=== PATIENT | female | born 1995 | race American Indian/Alaskan Native ===

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

== ENCOUNTER 2017-01-04 16:49 | Outpatient (CLI) | payer SELFPAY ==
[2017-01-04 17:13] VITALS: BP 100/57
--- NOTE | 2017-01-04 20:09 | Progress Note ---
Assessment and Plan A: Term ; false labor. P: Discharge patient to home. Follow up at [facility] on Saturday at regular appointment. Advised patient to perform daily movement counting. Advised patient regarding signs of labor and late warning signs. Subjective - Subjective Date of service: 01/04/17 Principal diagnosis: False labor Interval history: 21 year old female at term presents with complaint of contractions. Patient states she has had a cervical exam several times in the past week and had some brown spotting each day. Patient states yesterday she had some pink to red vaginal spotting/bleeding. Patient denies recent IC. Patient reports movement is slightly decreased since yesterday. She denies falls or abdominal trauma. She denies leaking of fluid. Patient reports: vaginal bleeding, no loss of fluid Objective - Vital Signs Vital Signs: Vital Signs - 12hr 01/04/17 01/04/17 17:13 17:14 Temperature 98.4 F Pulse Rate 97 H Blood Pressure 100/57 Blood Pressure 100/57 [Left] - Exam Narrative Exam: BPP 8/8. Normal placenta on sono today. Patient states she now feels good movement. Abdomen: Present: normal appearance, soft. Absent: distention, tenderness, guarding Uterus: Present: normal, other (gravid, nontender) FHR: category 1 Uterine Contraction Monitor Mode: External Cervical Dilatation: 2.5 Cervical Effacement Percentage: 50 station: -3 Uterine Contraction Frequency (min): Irregular Extremities: normal
--- NOTE | 2017-01-06 10:05 | Ultrasound Report ---
ULTRASOUND OB LIMITED History: well being, vaginal bleeding Technique: Transabdominal ultrasound with Doppler interrogation. Gestation: Single Position: Cephalic Placenta: Anterior Placental Grade: 2 Heart Rate: 145 BPM
--- NOTE | 2017-01-06 10:05 | Ultrasound Report ---
ULTRASOUND BIOPHYSICAL PROFILE: History: well being, vaginal bleeding Technique: Transabdominal ultrasound with Doppler interrogation. 2 - breathing movements 2 - movements 2 - posture and tone 2 - Qualitative amniotic fluid volume 8 - TOTAL SCORE OF POSSIBLE 8 Heart Rate (bpm) 145
== END 2017-01-04 18:32 | disposition home or self-care (01) ==
LOC: TRG 16:49
PROVIDERS: ATTEND Obstetrics & Gynecology
DX: O62.9 Abnormality of forces of labor, unspecified (principal); O47.1 False labor at or after 37 completed weeks of gestation; Z3A.39 39 weeks gestation of pregnancy
CPT/HCPCS: 59025; 76815; 76819

== ENCOUNTER 2017-01-06 03:18 | Inpatient (IN) | payer OTHER ==
[2017-01-06] MEDS ORDERED: ePHEDrine SULFATE IV PRN (04:18)
[2017-01-06] MEDS ORDERED: MINERAL OIL PO PRN (04:18)
[2017-01-06] MEDS ORDERED: XYLOCAINE 2% INFILTRATI ONE (04:18)
[2017-01-06 04:28] LABS: Hematocrit 35.3 % (30.3-42.9); Hemoglobin 11.5 gm/dl (10.1-14.3); Mean Corpuscular HGB Conc 33 % (30-34); Mean Corpuscular Hemoglobin 27 pg (28-32); Mean Corpuscular Volume 82 fl (79-97); Platelet Count 200 K/mm3 (140-440); Red Blood Count 4.33 M/mm3 (3.65-5.03); Red Cell Distribution Width 15.3 % (13.2-15.2); White Blood Count 8.4 K/mm3 (4.5-11.0)
[2017-01-06] MEDS ORDERED: SUBLIMAZE IV PRN (04:51)
[2017-01-06] MEDS ORDERED: ZOFRAN IV PRN (04:51)
[2017-01-06] MEDS ORDERED: LACTATED RINGERS 1,000 ML IV SCH (05:00)
--- NOTE | 2017-01-06 05:10 | History and Physical Report ---
History of Present Illness Date of examination: 01/06/17 Date of admission: 01/06/17 03:46 Chief complaint: Labor History of present illness: 21 year old presents to L&D in labor. Patient denies leaking of fluid or vaginal bleeding. No records available but patient has received care at [facility]. Past History Past Surgical History: no surgical history [employer] History: denies: herpes Family/Genetic History: none Social history: no significant social history - Obstetrical History Expected Date of Delivery: 01/06/17 Actual Gestation: 40 Week(s) 0 Day(s) : 2 Para: 1 Hx # Term Pregnancies: 2 Number of Pregnancies: 0 Spontaneous Abortions: 0 Induced : 0 Number of Living Children: 1 Medications and Allergies Allergies Allergy/AdvReac Type Severity Reaction Status Date / Time No Known Allergies Allergy Verified 07/19/15 17:01 Home Medications Medication Instructions Recorded Confirmed Last Taken Type No Known Home Medications [No 01/04/17 01/04/17 Unknown History Reported Home Medications] Active Meds: Active Medications Fentanyl (Sublimaze) 100 mcg IV Q2H PRN PRN Reason: Labor Pain Lactated Ringer's (Lactated Ringers) 1,000 mls @ 125 mls/hr IV DIRECT RADHA Oxytocin/Sodium Chloride (Pitocin/Ns 20 Unit/1000ml Drip) 20 units in 1,000 mls @ 125 mls/hr IV DIRECT RADHA Mineral Oil (Mineral Oil) 30 ml PO QHS PRN PRN Reason: Constipation Ondansetron HCl (Zofran) 4 mg IV Q8H PRN PRN Reason: Nausea And Vomiting Review of Systems Constitutional: no fever, no chills Eyes: deferred Ears, nose, mouth and throat: no headache Cardiovascular: no chest pain, no edema Respiratory: no cough Gastrointestinal: nausea, vomiting Genitourinary: no vaginal bleeding, no leakage of fluid - Vital Signs Vital signs: Vital Signs Pulse BP 92 H 115/75 01/06/17 03:47 01/06/17 03:47 Temp Pulse Resp BP Pulse Ox 97 H 108/67 01/06/17 04:21 01/06/17 04:21 - Physical Exam Breasts: Positive: deferred Cardiovascular: Regular rate, No murmurs Lungs: Positive: Clear to auscultation Abdomen: Positive: normal appearance, soft. Negative: distention, tenderness, guarding Genitourinary (Female): Positive: normal external genitalia. Negative: perineal /vulvar lesions Uterus: Positive: enlarged Extremities: Positive: normal. Negative: edema - Obstetrical FHR: category 1 Uterine Contraction Monitor Mode: External Cervical Dilatation: 8 Cervical Effacement Percentage: 90 station: 0 Uterine Contraction Pattern: Regular Uterine Contraction Intensity: Moderate Results Result Diagrams: 01/06/17 04:13 Abnormal lab results 01/06/17 Range/Units 04:13 MCH 27 L (28-32) pg RDW 15.3 H (13.2-15.2) % All other labs normal. Assessment and Plan A: at 39 weeks, 3 days gestation. Active labor. P: Admit. GBS prophylaxis since no records available. Anticipate .
[2017-01-06] MEDS ORDERED: POLYCILLIN/NS 2 GM/100 ML 2 GM/100 ML BAG IV ONE (05:18)
[2017-01-06] MEDS: PITOCin/NS 20 UNIT/1000ML DRIP 20 UNITS/1,000 ML BAG IV SCH ×2 (06:14→07:58)
[2017-01-06] MEDS ORDERED: CYTOTEC ONE (06:17)
[2017-01-06] MEDS ORDERED: LANSINOH TP PRN ×2 (06:38)
[2017-01-06] MEDS ORDERED: NORCO 5/325 PO PRN (06:38)
[2017-01-06] MEDS ORDERED: TUCKS PAD TP PRN (06:38)
[2017-01-06] MEDS ORDERED: DERMOPLAST TP PRN (06:38)
[2017-01-06] MEDS ORDERED: CYTOTEC PR ONE (06:41)
--- NOTE | 2017-01-06 06:56 | Procedure Note ---
OB Delivery Note - Vaginal Delivery position: OA Intrapartum events: precipitous labor- <3hr Delivery induction: none Delivery monitor: external FHT, external uterine Route of delivery: Delivery placenta: spontaneous Episiotomy: none Delivery laceration: none Anesthesia: none Delivery comments: Spontaneous vaginal delivery of liveborn male infant OA over intact perineum weighing 6 lbs. 15 oz. with apgars of 8/9. No anesthesia. Spontaenous cry and respirations. 3 vessel cord double clamped and cut. Spontaneous delivery of intact placenta and membranes by rogers mechanism. EBL 450 ml. IV Pitocin given ; Cytotec 800 mcg per rectum given for uterine atony. Uterus responded well to Cytotec and fundus is now firm and midline. No lacerations noted. Sponge counts correct. Mother and baby stable in birthing room.
[2017-01-06] MEDS ORDERED: SODIUM CHLORIDE FLUSH SYRINGE 10 ML IV NR (07:00)
[2017-01-06] MEDS: COLACE PO SCH ×2 (10:29→22:11)
[2017-01-06] MEDS: FEOSOL PO SCH ×2 (10:29→22:11)
[2017-01-06] MEDS: MOTRIN PO SCH ×2 (13:20→18:22)
[2017-01-06 18:26] LABS: Hematocrit 30.6 % (30.3-42.9); Hemoglobin 9.7 gm/dl (10.1-14.3)
[2017-01-07] MEDS: MOTRIN PO SCH (06:36)
[2017-01-07 09:58] VITALS: BP 103/67
--- NOTE | 2017-01-07 11:47 | Progress Note ---
Assessment and Plan - Patient Problems (1) (normal spontaneous vaginal delivery) Onset Date: 01/07/17 Current Visit: Yes Status: Resolved Plan to address problem: A: S/P - PPD #1 Doing well Asymptomatic anemia - stable P: May go home today. (2) Acute blood loss anemia Onset Date: 01/07/17 Current Visit: Yes Status: Resolved Subjective - Subjective Date of service: 01/07/17 Principal diagnosis: s/p - PPD #1 Interval history: Pt is feeling well without complaints. Bleeding improved. Patient reports: appetite normal, voiding normally, pain well controlled, ambulating normally : doing well, nursing well, bottle feeding Objective - Vital Signs Latest vital signs: Vital Signs Temp Pulse Resp BP 01/07/17 09:18 97.8 F 84 18 103/67 01/06/17 23:40 98.5 F 72 18 94/66 01/06/17 16:30 98.3 F 88 20 128/69 01/06/17 13:00 98 F 90 20 118/72 Intake and Output 01/06/17 01/07/17 01/07/17 22:59 06:59 14:59 Intake Total 615 760 240 Balance 615 760 240 Intake: IV 375 PITOCin/NS 20 UNIT/1000ML 375 DRIP 20 units In 1,000 ml @ 125 mls/hr IV DIRECT RADHA Rx#:[id number] Oral 240 240 Intake, Free Water 760 Other: Total, Intake Amount 240 240 # Voids Void 2 1 - Exam Breasts: Present: deferred Cardiovascular: Present: Regular rate Lungs: Present: Clear to auscultation Abdomen: Present: normal appearance, soft Uterus: Present: normal, firm, fundal height below umbilicus Extremities: Present: normal - Labs Labs: Abnormal lab results 01/06/17 Range/Units 17:57 Hgb 9.7 L (10.1-14.3) gm/dl Laboratory Tests 01/06/17 01/06/17 01/06/17 04:13 04:13 04:13 WBC 8.4 RBC 4.33 Hgb 11.5 Hct 35.3 MCV 82 MCH 27 L MCHC 33 RDW 15.3 H Plt Count 200 RPR Nonreactive Blood Type A POSITIVE Antibody Screen Negative 01/06/17 17:57 WBC RBC Hgb 9.7 L Hct 30.6 MCV MCH MCHC RDW Plt Count RPR Blood Type Antibody Screen
--- NOTE | 2017-01-07 11:49 | Discharge Summary ---
Providers - Providers Date of Admission: 01/06/17 03:46 Date of discharge: 01/07/17 Attending physician: CALISTA KENNEDY MD 01/06/17 06:40 Consult to Preflight Inspector [CONS] Routine Reason For Exam: assistance with , SNS Primary care physician: CALISTA KENNEDY MD Hospitalization Reason for admission: active labor, IUP at term Delivery: Episiotomy: none Laceration: none Other procedures: none complications: none Discharge diagnosis: IUP at term delivered baby: male Hospital course: Unremarkable. Condition at discharge: Good Disposition: DC-01 TO HOME OR SELFCARE - Discharge Diagnoses (1) (normal spontaneous vaginal delivery) Status: Resolved (2) Acute blood loss anemia Status: Resolved Plan - Discharge Medications Prescriptions: Ferrous Sulfate [Feosol 325 MG tab] 325 mg PO BID #60 tablet Ibuprofen [Motrin 600 MG tab] 600 mg PO Q6H #30 tablet Vit W-Ca,Fe,FA(<1 mg) [ Vitamins] 1 each PO DAILY #30 tablet - Provider Discharge Summary Activity: routine, no sex for 6 weeks, no heavy lifting 4 weeks, no strenuous exercise Diet: routine Instructions: routine Additional instructions: [] Smoking cessation referral if applicable(refer to patient education folder for contact #) [] Refer to [facility] Booklet Call your doctor immediately for: * Fever > 100.5 * Heavy vaginal bleeding ( >1 pad per hour) * Severe persistent headache * Shortness of breath * Reddened, hot, painful area to leg or breast * Drainage or odor from incision. * Keep incision clean and dry at all times and follow doctor's instructions regarding bathing/showering - Follow up plan Follow up: CALISTA CORDOBA MD [Primary Care Provider] - 6 Weeks
== END 2017-01-07 16:57 | disposition home or self-care (01) | DRG 775 ==
LOC: TRG 03:18 → LD 03:46 → TRG 03:46 → OB 08:53
PROVIDERS: ADMIT Obstetrics & Gynecology; ATTEND Obstetrics & Gynecology
PROC: 10E0XZZ Delivery of Products of Conception, External Approach (ICD-10-PCS; principal; 2017-01-06)
DX: O62.3 Precipitate labor (principal); D62 Acute posthemorrhagic anemia; O62.2 Other uterine inertia; O99.03 Anemia complicating the puerperium; Z3A.39 39 weeks gestation of pregnancy; Z37.0 Single live birth
CPT/HCPCS: 36415; 85014; 85018; 85027; 86592; 86850; 86900; 86901; 99211; G0463; J0290; J2590; J3010; J7120